=== PATIENT | male | born 1985 | race Caucasian/White ===

== ENCOUNTER 2019-05-21 17:39 | Emergency (ER) | payer OTHER ==
[~2019-05-21] VITALS: Wt 90.7 kg
== END 2019-05-21 18:03 | disposition home or self-care (01) ==
LOC: ED 17:39
DX: R11.10 Vomiting, unspecified (principal); F15.10 Other stimulant abuse, uncomplicated; S90.822A Blister (nonthermal), left foot, initial encounter; S90.821A Blister (nonthermal), right foot, initial encounter; R03.0 Elevated blood-pressure reading, without diagnosis of hypertension; Z02.89 Encounter for other administrative examinations; X58.XXXA Exposure to other specified factors, initial encounter; Y93.89 Activity, other specified; Y92.89 Other specified places as the place of occurrence of the external cause; Y99.8 Other external cause status